=== PATIENT | male | born 1935 | race Caucasian/White ===

== ENCOUNTER 2021-12-23 12:11 | Emergency (ER) | payer MEDICARE ==
[2021-12-23] MEDS ORDERED: Doxycycline 100 MG Cap PO ONE (13:12)
== END 2021-12-23 14:33 | disposition home or self-care (01) ==
LOC: JP.ED 12:11
DX: T83.511A Infection and inflammatory reaction due to indwelling urethral catheter, initial encounter (principal); L03.311 Cellulitis of abdominal wall; E11.22 Type 2 diabetes mellitus with diabetic chronic kidney disease; N18.31 Chronic kidney disease, stage 3a; Z95.0 Presence of cardiac pacemaker; Z79.4 Long term (current) use of insulin; Z79.899 Other long term (current) drug therapy
CPT/HCPCS: 99283; A9270

== ENCOUNTER 2021-12-26 22:16 | Emergency (ER) | payer MEDICARE | END 2021-12-27 08:10 | disposition home or self-care (01) | LOC: JP.ED 22:16 | DX: T83.098A Other mechanical complication of other urinary catheter, initial encounter (principal); I11.0 Hypertensive heart disease with heart failure; I50.9 Heart failure, unspecified; J44.9 Chronic obstructive pulmonary disease, unspecified; E11.9 Type 2 diabetes mellitus without complications; Z79.01 Long term (current) use of anticoagulants; Z79.4 Long term (current) use of insulin; Z79.899 Other long term (current) drug therapy | CPT/HCPCS: 99283 ==

== ENCOUNTER 2023-01-10 15:05 | Emergency (ER) | payer MEDICARE ==
[2023-01-10 16:43] LABS: BASOPHILS ABSOLUTE AUTO 0.08 K/uL (0.00-0.10); BASOPHILS PERCENT AUTO 0.7 % (0.1-1.3); EOSINOPHILS ABSOLUTE AUTO 0.45 K/uL (0.00-0.40); EOSINOPHILS PERCENT AUTO 3.7 % (0.0-5.4); HEMATOCRIT 41.8 % (38.4-49.7); HEMOGLOBIN 13.3 g/dL (12.9-16.9); IMMATURE GRAN ABSOLUTE AUTO 0.08 K/uL (0.00-0.23); IMMATURE GRAN PERCENT AUTO 0.7 % (0.0-0.7); LYMPHOCYTES ABSOLUTE AUTO 1.28 K/uL (0.8-3.3); LYMPHOCYTES PERCENT AUTO 10.4 % (11.4-47.7); MEAN CORPUSCULAR HEMOGLOBIN 28.9 pg (31.6-35.5); MEAN CORPUSCULAR HGB CONC 31.8 g/dL (31.6-35.5); MEAN CORPUSCULAR VOLUME 90.7 fL (81.4-99.0); MONOCYTES ABSOLUTE AUTO 0.83 K/uL (0.20-0.90); MONOCYTES PERCENT AUTO 6.8 % (3.3-12.6); NEUTROPHILS ABSOLUTE AUTO 9.57 K/uL (1.0-7.6); NEUTROPHILS PERCENT AUTO 77.7 % (40.0-78.1); PLATELET COUNT,PLT 260 K/uL (130-375); RED BLOOD CELL COUNT 4.61 M/uL (4.14-5.76); WHITE BLOOD CELL COUNT,WBC 12.3 K/uL (3.2-11.0)
[2023-01-10 17:00] LABS: ANION GAP 6.8 mmol/L (5.0-14.0); CALCIUM 10.8 mg/dL (8.5-10.1); CREATININE 1.9 mg/dL (0.8-1.3); EST CRCL DRUG DOSING (CG) 26.58 mL/min; POTASSIUM,K 4.5 mmol/L (3.6-5.2)
== END 2023-01-10 19:23 | disposition home or self-care (01) ==
LOC: JP.ED 15:05
DX: L03.115 Cellulitis of right lower limb (principal); I11.0 Hypertensive heart disease with heart failure; I50.9 Heart failure, unspecified; E11.9 Type 2 diabetes mellitus without complications; J44.9 Chronic obstructive pulmonary disease, unspecified; Z79.01 Long term (current) use of anticoagulants; Z79.82 Long term (current) use of aspirin; Z79.84 Long term (current) use of oral hypoglycemic drugs; Z79.4 Long term (current) use of insulin; Z79.899 Other long term (current) drug therapy
CPT/HCPCS: 36415; 71045; 71045-26; 80048; 85025; 99284

== ENCOUNTER 2023-01-20 16:02 | Inpatient (IN) | payer MEDICARE ==
[2023-01-20 16:58] LABS: BASOPHILS ABSOLUTE AUTO 0.06 K/uL (0.00-0.10); BASOPHILS PERCENT AUTO 0.4 % (0.1-1.3); EOSINOPHILS ABSOLUTE AUTO 0.03 K/uL (0.00-0.40); EOSINOPHILS PERCENT AUTO 0.2 % (0.0-5.4); HEMATOCRIT 39.4 % (38.4-49.7); HEMOGLOBIN 12.6 g/dL (12.9-16.9); IMMATURE GRAN ABSOLUTE AUTO 0.09 K/uL (0.00-0.23); IMMATURE GRAN PERCENT AUTO 0.5 % (0.0-0.7); LYMPHOCYTES ABSOLUTE AUTO 1.28 K/uL (0.8-3.3); LYMPHOCYTES PERCENT AUTO 7.6 % (11.4-47.7); MEAN CORPUSCULAR HEMOGLOBIN 28.8 pg (31.6-35.5); MEAN CORPUSCULAR VOLUME 90.2 fL (81.4-99.0); MONOCYTES ABSOLUTE AUTO 0.95 K/uL (0.20-0.90); MONOCYTES PERCENT AUTO 5.6 % (3.3-12.6); NEUTROPHILS ABSOLUTE AUTO 14.53 K/uL (1.0-7.6); NEUTROPHILS PERCENT AUTO 85.7 % (40.0-78.1); PLATELET COUNT,PLT 211 K/uL (130-375); RED BLOOD CELL COUNT 4.37 M/uL (4.14-5.76); WHITE BLOOD CELL COUNT,WBC 16.9 K/uL (3.2-11.0)
[2023-01-20 17:17] LABS: INR 1.3; PROTHROMBIN TIME 12.8 sec (9.2-10.6)
[2023-01-20 17:42] LABS: A/G RATIO 0.7 (1.2-2.2); ALANINE AMINOTRANSFERASE,ALT 12 U/L (12-78); ALBUMIN 2.9 g/dL (3.4-5.0); ALKALINE PHOSPHATASE 100 U/L (46-116); ANION GAP 6.5 mmol/L (5.0-14.0); ASPARTATE AMNIOTRANSFERASE,AST 22 U/L (15-37); BILIRUBIN TOTAL 0.6 mg/dL (0.2-1.0); CARBON DIOXIDE,CO2 31 mmol/L (21-32); CHLORIDE,CL 104 mmol/L (100-108); EST CRCL DRUG DOSING (CG) 17.42 mL/min; ESTIMATED GFR 20 mL/min (>60); GLUCOSE RANDOM 72 mg/dL (74-106); POTASSIUM,K 4.9 mmol/L (3.6-5.2); PRO B-TYPE NATRIUR PEPT,BNPPRO 1219 pg/mL (5-450); PROTEIN TOTAL,TP 7.1 g/dL (6.4-8.2); SODIUM,NA 141 mmol/L (140-148)
[2023-01-20 17:44] LABS: BLOOD UREA NITROGEN,BUN 87 mg/dL (7-18)
[2023-01-20] MEDS ORDERED: Sodium Chloride 0.9% 1,000 ML IV SCH (17:45)
[2023-01-20 18:02] LABS: BILIRUBIN,URINE NEGATIVE (NEGATIVE); COLOR,URINE YELLOW (YELLOW); GLUCOSE,URINE NEGATIVE (NEGATIVE); KETONES,URINE NEGATIVE (NEGATIVE); LEUKOCYTE ESTERASE,URINE MODERATE (NEGATIVE); NITRITE,URINE POSITIVE (NEGATIVE); OCCULT BLOOD,URINE TRACE-INTACT (NEGATIVE); PH,URINE 6.5 (5.0-8.0); PROTEIN,URINE NEGATIVE (NEGATIVE); UROBILINOGEN,URINE 0.2 EU/dL (0.2-1.0)
[2023-01-20 18:08] LABS: AMORPHOUS SEDIMENT,URINE NOT SEEN; APPEARANCE,URINE CLOUDY (CLEAR); BACTERIA,URINE MODERATE; EPITHELIAL CELLS,URINE NOT SEEN; MUCUS,URINE NOT SEEN; RBC,URINE 0-5 (0-5); WBC,URINE 20-30 (0-5)
[2023-01-20] MEDS ORDERED: Levofloxacin/Dextrose 5%-Water 750 MG in Premix Bag 1 BAG IV ONE (18:14)
[2023-01-20 19:17] LABS: CORONAVIRUS COVID-19 NAA NEGATIVE (NEGATIVE); INFLUENZA A NAA NEGATIVE (NEGATIVE); INFLUENZA B NAA NEGATIVE (NEGATIVE); RESPIRATORY SYNCYTIAL VIR NAA NEGATIVE (NEGATIVE)
[2023-01-20] MEDS ORDERED: Haloperidol 5 MG Tab PO PRN (20:38)
[2023-01-20] MEDS ORDERED: Bisacodyl 5 MG Tab PO PRN (20:38)
[2023-01-20] MEDS ORDERED: oxyCODONE 5 MG Tab PO PRN (20:38)
[2023-01-20] MEDS ORDERED: Haloperidol Lactate 5 MG/ML SDV IVPUSH PRN (20:38)
[2023-01-20] MEDS ORDERED: Morphine 2 MG/ML SYRINGE IVPUSH PRN (20:38)
[2023-01-20] MEDS ORDERED: Glucagon,Human Recombinant 1 MG Vial IM PRN (20:38)
[2023-01-20] MEDS ORDERED: 50% Dextrose in Water 50 ML Syringe IVPUSH PRN (20:38)
[2023-01-20] MEDS ORDERED: Albuterol/Ipratropium 3.0-0.5 MG/3 ML Neb Soln NEB PRN (20:38)
[2023-01-20] MEDS ORDERED: Naloxone 0.4 MG/ML SDV IVPUSH PRN (20:38)
[2023-01-20] MEDS ORDERED: Albuterol 0.083% 2.5 MG/3 ML Neb Soln NEB PRN (20:38)
[2023-01-20] MEDS ORDERED: Acetaminophen 325 MG Tab PO PRN (20:38)
[2023-01-20] MEDS ORDERED: Docusate Sodium 100 MG Cap PO PRN (20:38)
[2023-01-20] MEDS: Insulin Lispro 100 Unit/ML 3 ML KwikPen SUBCUT SCH (20:57)
[2023-01-20] MEDS: Sodium Chloride 0.9% 1,000 ML IV SCH (20:58)
[2023-01-20] MEDS ORDERED: Insulin Glargine,Human Rec. Analog 100 Units/ML 3 ML Pen SUBCUT SCH (21:00)
[2023-01-20] MEDS ORDERED: Pantoprazole 40 MG Vial IV SCH (21:00)
[2023-01-20] MEDS ORDERED: Loratadine 10 MG Tab PO SCH (21:00)
[2023-01-20] MEDS ORDERED: Apixaban 5 MG Tab PO SCH (21:00)
[2023-01-20] MEDS: oxyCODONE 5 MG Tab PO SCH (22:38)
[2023-01-20] MEDS: cefTRIAXone 2 GM in Sodium Chloride 0.9% 50 ML IV SCH (22:41)
[2023-01-20] MEDS: Clotrimazole 1% Crm 30 GM Tube TOP SCH (22:41)
[2023-01-20] MEDS: Diclofenac Sodium 1% Gel 100 GM Tube TOP SCH (22:42)
[2023-01-21 05:30] LABS: BASOPHILS ABSOLUTE AUTO 0.06 K/uL (0.00-0.10); BASOPHILS PERCENT AUTO 0.5 % (0.1-1.3); EOSINOPHILS ABSOLUTE AUTO 0.16 K/uL (0.00-0.40); EOSINOPHILS PERCENT AUTO 1.4 % (0.0-5.4); HEMATOCRIT 36.3 % (38.4-49.7); HEMOGLOBIN 11.5 g/dL (12.9-16.9); IMMATURE GRAN ABSOLUTE AUTO 0.06 K/uL (0.00-0.23); IMMATURE GRAN PERCENT AUTO 0.5 % (0.0-0.7); LYMPHOCYTES ABSOLUTE AUTO 1.34 K/uL (0.8-3.3); LYMPHOCYTES PERCENT AUTO 11.4 % (11.4-47.7); MEAN CORPUSCULAR HEMOGLOBIN 28.9 pg (31.6-35.5); MEAN CORPUSCULAR HGB CONC 31.7 g/dL (31.6-35.5); MEAN CORPUSCULAR VOLUME 91.2 fL (81.4-99.0); MONOCYTES ABSOLUTE AUTO 0.81 K/uL (0.20-0.90); MONOCYTES PERCENT AUTO 6.9 % (3.3-12.6); NEUTROPHILS ABSOLUTE AUTO 9.33 K/uL (1.0-7.6); NEUTROPHILS PERCENT AUTO 79.3 % (40.0-78.1); PLATELET COUNT,PLT 186 K/uL (130-375); RED BLOOD CELL COUNT 3.98 M/uL (4.14-5.76); WHITE BLOOD CELL COUNT,WBC 11.8 K/uL (3.2-11.0)
[2023-01-21] MEDS: Sodium Chloride 0.9% 1,000 ML IV SCH ×3 (05:40→21:51)
[2023-01-21 05:47] LABS: CALCIUM 9.8 mg/dL (8.5-10.1); CREATININE 2.7 mg/dL (0.8-1.3); EST CRCL DRUG DOSING (CG) 19.35 mL/min; POTASSIUM,K 4.7 mmol/L (3.6-5.2)
[2023-01-21] MEDS: Diclofenac Sodium 1% Gel 100 GM Tube TOP SCH ×4 (06:16→21:45)
[2023-01-21] MEDS: Insulin Lispro 100 Unit/ML 3 ML KwikPen SUBCUT SCH ×4 (07:47→21:47)
[2023-01-21] MEDS: Formoterol/Mometasone 200-5 MCG 8.8 GM Inhaler IH SCH (08:23)
[2023-01-21] MEDS: Calcium Carbonate/Vitamin D3 1500 MG-400 Units Tab PO SCH (08:40)
[2023-01-21] MEDS: Apixaban 2.5 MG Tab PO SCH ×2 (08:40→21:42)
[2023-01-21] MEDS: Mineral Oil/Petrolatum Oint 100 GM OINT TOP SCH (08:42)
[2023-01-21] MEDS: Aspirin 81 MG Tab.EC PO SCH (08:42)
[2023-01-21] MEDS: atorvaSTATin 10 MG Tab PO SCH (08:43)
[2023-01-21] MEDS: Metoprolol Succinate 25 MG Tab.ER PO SCH (08:43)
[2023-01-21] MEDS: Sertraline 50 MG Tab PO SCH (08:46)
[2023-01-21] MEDS: oxyCODONE 5 MG Tab PO SCH ×2 (08:49→21:42)
[2023-01-21] MEDS: Ceres/Mineral Oil/Petrolatum/Wool Alcohol Cream 57 GM Tube TOP SCH ×2 (08:53→21:44)
[2023-01-21] MEDS: Clotrimazole 1% Crm 30 GM Tube TOP SCH ×2 (08:54→21:42)
[2023-01-21] MEDS ORDERED: Spironolactone 25 MG Tab PO SCH (09:00)
[2023-01-21] MEDS ORDERED: Bumetanide 1 MG Tab PO SCH (09:00)
[2023-01-21] MEDS ORDERED: Liraglutide (rDNA Origin) 0.6 MG/0.1 ML 3 ML Pen SUBCUT SCH (09:00)
[2023-01-21] MEDS: Insulin Glargine,Human Rec. Analog 100 Units/ML 3 ML Pen SUBCUT SCH ×2 (09:41→21:45)
[2023-01-21] MEDS: Triamcinolone Acetonide 0.1% Crm 15 GM Tube TOP SCH (09:42)
[2023-01-21] MEDS ORDERED: Pantoprazole 40 MG Tab.CR PO SCH (21:00)
[2023-01-21] MEDS: cefTRIAXone 2 GM in Sodium Chloride 0.9% 50 ML IV SCH (21:50)
[2023-01-22 05:51] LABS: HEMATOCRIT 34.1 % (38.4-49.7); HEMOGLOBIN 10.8 g/dL (12.9-16.9); MEAN CORPUSCULAR HGB CONC 31.7 g/dL (31.6-35.5); MEAN CORPUSCULAR VOLUME 91.4 fL (81.4-99.0); RED BLOOD CELL COUNT 3.73 M/uL (4.14-5.76); WHITE BLOOD CELL COUNT,WBC 9.2 K/uL (3.2-11.0)
[2023-01-22 06:07] LABS: CREATININE 2.1 mg/dL (0.8-1.3); EST CRCL DRUG DOSING (CG) 24.88 mL/min; POTASSIUM,K 4.9 mmol/L (3.6-5.2)
[2023-01-22 06:11] LABS: ANION GAP 7.9 mmol/L (5.0-14.0)
[2023-01-22] MEDS: Sodium Chloride 0.9% 1,000 ML IV SCH (06:11)
[2023-01-22] MEDS: Diclofenac Sodium 1% Gel 100 GM Tube TOP SCH ×3 (06:12→11:57)
[2023-01-22] MEDS: Formoterol/Mometasone 200-5 MCG 8.8 GM Inhaler IH SCH (08:05)
[2023-01-22] MEDS: Insulin Lispro 100 Unit/ML 3 ML KwikPen SUBCUT SCH ×2 (08:32→11:54)
[2023-01-22] MEDS: Calcium Carbonate/Vitamin D3 1500 MG-400 Units Tab PO SCH (08:44)
[2023-01-22] MEDS: Apixaban 2.5 MG Tab PO SCH (08:44)
[2023-01-22] MEDS: Ceres/Mineral Oil/Petrolatum/Wool Alcohol Cream 57 GM Tube TOP SCH (08:45)
[2023-01-22] MEDS: Mineral Oil/Petrolatum Oint 100 GM OINT TOP SCH (08:46)
[2023-01-22] MEDS: Aspirin 81 MG Tab.EC PO SCH (08:46)
[2023-01-22] MEDS: Insulin Glargine,Human Rec. Analog 100 Units/ML 3 ML Pen SUBCUT SCH (08:47)
[2023-01-22] MEDS: atorvaSTATin 10 MG Tab PO SCH (08:50)
[2023-01-22] MEDS: Clotrimazole 1% Crm 30 GM Tube TOP SCH (08:51)
[2023-01-22] MEDS: Triamcinolone Acetonide 0.1% Crm 15 GM Tube TOP SCH (08:52)
[2023-01-22] MEDS: Sertraline 50 MG Tab PO SCH (08:53)
[2023-01-22] MEDS: Metoprolol Succinate 25 MG Tab.ER PO SCH (08:54)
[2023-01-22] MEDS: oxyCODONE 5 MG Tab PO SCH (08:59)
[2023-01-22] MEDS ORDERED: Levofloxacin/Dextrose 5%-Water 750 MG in Premix Bag 1 BAG IV SCH (14:00)
== END 2023-01-22 12:31 | disposition home health service (06) | DRG 698 ==
LOC: JP.ED 16:02 → JP.ICU 18:59
PROVIDERS: ADMIT Internal Medicine; ATTEND Internal Medicine
DX: T83.510A Infection and inflammatory reaction due to cystostomy catheter, initial encounter (principal); A41.9 Sepsis, unspecified organism; R65.20 Severe sepsis without septic shock; L03.115 Cellulitis of right lower limb; N17.9 Acute kidney failure, unspecified; I11.0 Hypertensive heart disease with heart failure; I48.20 Chronic atrial fibrillation, unspecified; I42.9 Cardiomyopathy, unspecified; E11.9 Type 2 diabetes mellitus without complications; I13.0 Hypertensive heart and chronic kidney disease with heart failure and stage 1 through stage 4 chronic kidney disease, or unspecified chronic kidney disease; N39.0 Urinary tract infection, site not specified; F02.811 Dementia in other diseases classified elsewhere, unspecified severity, with agitation; Z20.822 Contact with and (suspected) exposure to COVID-19; G30.9 Alzheimer's disease, unspecified; Y84.6 Urinary catheterization as the cause of abnormal reaction of the patient, or of later complication, without mention of misadventure at the time of the procedure; Z66 Do not resuscitate; I50.9 Heart failure, unspecified; G89.29 Other chronic pain; M54.9 Dorsalgia, unspecified; N18.30 Chronic kidney disease, stage 3 unspecified; E11.22 Type 2 diabetes mellitus with diabetic chronic kidney disease; F41.9 Anxiety disorder, unspecified; B35.9 Dermatophytosis, unspecified; E86.0 Dehydration; J44.9 Chronic obstructive pulmonary disease, unspecified; I87.2 Venous insufficiency (chronic) (peripheral); Z93.59 Other cystostomy status; Z79.4 Long term (current) use of insulin; Z79.899 Other long term (current) drug therapy; Z79.01 Long term (current) use of anticoagulants; Z79.82 Long term (current) use of aspirin; Z79.84 Long term (current) use of oral hypoglycemic drugs; Z95.0 Presence of cardiac pacemaker
CPT/HCPCS: 0241U; 36415; 70450; 71045; 80048; 80053; 81001; 82947; 83605; 83880; 84145; 85025; 85027; 85610; 87040; 87086; 93005; 94640; 96360; 97161; 99223; 99233; 99238; 99285; 87088; 87186; A9270-GY; C9113; J0696; J1815; J1815-GY; J1956; J3490; J7030

== ENCOUNTER 2023-01-23 09:17 | Emergency (ER) | payer MEDICARE | END 2023-01-23 13:20 | LOC: JP.ED 09:17 | DX: I95.9 Hypotension, unspecified (principal); I73.00 Raynaud's syndrome without gangrene; I11.0 Hypertensive heart disease with heart failure; I50.9 Heart failure, unspecified; J44.9 Chronic obstructive pulmonary disease, unspecified; I48.91 Unspecified atrial fibrillation; E11.9 Type 2 diabetes mellitus without complications; Z95.0 Presence of cardiac pacemaker; Z79.01 Long term (current) use of anticoagulants; Z79.82 Long term (current) use of aspirin; Z79.899 Other long term (current) drug therapy; Z79.84 Long term (current) use of oral hypoglycemic drugs | CPT/HCPCS: 99285 ==

== ENCOUNTER 2023-03-09 15:42 | Emergency (ER) | payer MEDICARE | END 2023-03-09 16:30 | disposition left against medical advice (07) | LOC: JP.ED 15:42 | DX: Z53.21 Procedure and treatment not carried out due to patient leaving prior to being seen by health care provider (principal) ==

== ENCOUNTER 2023-07-31 11:04 | Emergency (ER) | payer MEDICARE | END 2023-07-31 13:09 | LOC: JP.ED 11:04 | DX: S80.01XA Contusion of right knee, initial encounter (principal); S70.01XA Contusion of right hip, initial encounter; I11.0 Hypertensive heart disease with heart failure; I50.9 Heart failure, unspecified; I48.91 Unspecified atrial fibrillation; J44.9 Chronic obstructive pulmonary disease, unspecified; E11.9 Type 2 diabetes mellitus without complications; Z79.01 Long term (current) use of anticoagulants; Z79.82 Long term (current) use of aspirin; Z79.84 Long term (current) use of oral hypoglycemic drugs; Z79.899 Other long term (current) drug therapy; Z79.4 Long term (current) use of insulin; Z87.891 Personal history of nicotine dependence; Z95.0 Presence of cardiac pacemaker; W07.XXXA Fall from chair, initial encounter; Y93.89 Activity, other specified | CPT/HCPCS: 72170; 73562-RT; 99285 ==

== ENCOUNTER 2023-08-26 09:31 | Emergency (ER) | payer MEDICARE ==
[2023-08-26] MEDS ORDERED: Piperacillin/Tazobactam 4.5 GM in Sodium Chloride 0.9% 100 ML IV ONE (11:48)
[2023-08-26] MEDS ORDERED: Bacitracin Oint 1 GM U/D Packet TOP ONE (12:21)
[2023-08-26 12:25] LABS: IMMATURE GRAN ABSOLUTE AUTO 0.09 K/uL (0.00-0.23)
[2023-08-26 12:39] LABS: LACTIC ACID 1.9 mmol/L (0.4-2.0)
[2023-08-26 12:41] LABS: POTASSIUM,K 5.2 mmol/L (3.6-5.2)
[2023-08-26 12:42] LABS: ANION GAP 6.2 mmol/L (5.0-14.0); CALCIUM 10.3 mg/dL (8.5-10.1); EST CRCL DRUG DOSING (CG) 25.65 mL/min
[2023-08-26 12:44] LABS: C-REACTIVE PROTEIN 4.77 mg/dL (<0.50)
[2023-08-26 13:21] LABS: HEMATOCRIT 37.2 % (38.4-49.7); MEAN CORPUSCULAR HEMOGLOBIN 28.4 pg (31.6-35.5); MEAN CORPUSCULAR VOLUME 87.9 fL (81.4-99.0); RED BLOOD CELL COUNT 4.23 M/uL (4.14-5.76); WHITE BLOOD CELL COUNT,WBC 12.6 K/uL (3.2-11.0)
[2023-08-26 13:22] LABS: EOSINOPHILS PERCENT AUTO 3.3 % (0.0-5.4); LYMPHOCYTES PERCENT AUTO 12.3 % (11.4-47.7); MEAN CORPUSCULAR HGB CONC 32.3 g/dL (31.6-35.5); NEUTROPHILS PERCENT AUTO 77.1 % (40.0-78.1); PLATELET COUNT,PLT 290 K/uL (130-375)
[2023-08-26 13:23] LABS: BASOPHILS PERCENT AUTO 0.6 % (0.1-1.3); IMMATURE GRAN PERCENT AUTO 0.7 % (0.0-0.7)
[2023-08-26 13:24] LABS: BASOPHILS ABSOLUTE AUTO 0.08 K/uL (0.00-0.10); EOSINOPHILS ABSOLUTE AUTO 0.41 K/uL (0.00-0.40); LYMPHOCYTES ABSOLUTE AUTO 1.55 K/uL (0.8-3.3); MONOCYTES ABSOLUTE AUTO 0.76 K/uL (0.20-0.90)
== END 2023-08-26 13:15 ==
LOC: JP.ED 09:31
DX: I96 Gangrene, not elsewhere classified (principal); I49.3 Ventricular premature depolarization; I11.0 Hypertensive heart disease with heart failure; I50.9 Heart failure, unspecified; J44.9 Chronic obstructive pulmonary disease, unspecified; E11.9 Type 2 diabetes mellitus without complications; Z79.82 Long term (current) use of aspirin; Z79.84 Long term (current) use of oral hypoglycemic drugs; Z79.899 Other long term (current) drug therapy
CPT/HCPCS: 36415; 80048; 83605; 85025; 86140; 87040; 87070; 87077; 87186; 87205; 99283

== ENCOUNTER 2023-09-30 03:55 | Emergency (ER) | payer MEDICARE ==
[2023-09-30 05:57] LABS: BASOPHILS ABSOLUTE AUTO 0.07 K/uL (0.00-0.10); BASOPHILS PERCENT AUTO 0.6 % (0.1-1.3); EOSINOPHILS PERCENT AUTO 4.6 % (0.0-5.4); HEMATOCRIT 33.6 % (38.4-49.7); HEMOGLOBIN 10.7 g/dL (12.9-16.9); IMMATURE GRAN ABSOLUTE AUTO 0.11 K/uL (0.00-0.23); LYMPHOCYTES ABSOLUTE AUTO 1.54 K/uL (0.8-3.3); LYMPHOCYTES PERCENT AUTO 14.2 % (11.4-47.7); MEAN CORPUSCULAR HGB CONC 31.8 g/dL (31.6-35.5); MONOCYTES ABSOLUTE AUTO 0.98 K/uL (0.20-0.90); MONOCYTES PERCENT AUTO 9.1 % (3.3-12.6); NEUTROPHILS ABSOLUTE AUTO 7.62 K/uL (1.0-7.6); NEUTROPHILS PERCENT AUTO 70.5 % (40.0-78.1); PLATELET COUNT,PLT 260 K/uL (130-375); RED BLOOD CELL COUNT 3.82 M/uL (4.14-5.76); WHITE BLOOD CELL COUNT,WBC 10.8 K/uL (3.2-11.0)
[2023-09-30 06:07] LABS: CALCIUM 9.9 mg/dL (8.5-10.1); CREATININE 2.3 mg/dL (0.8-1.3); EST CRCL DRUG DOSING (CG) 21.55 mL/min; POTASSIUM,K 4.1 mmol/L (3.6-5.2)
[2023-09-30 06:12] LABS: ANION GAP 11.1 mmol/L (5.0-14.0)
[2023-09-30] MEDS: Sodium Chloride 0.9% 1,000 ML IV SCH (07:45)
[2023-09-30] MEDS: Ampicillin/Sulbactam Na 1.5 GM in Sodium Chloride 0.9% 50 ML IV ONE (08:29)
[2023-09-30] MEDS: Acetaminophen 500 MG Tab PO ONE (10:53)
== END 2023-09-30 11:20 | disposition other institution (70) ==
LOC: JP.ED 03:55
DX: I96 Gangrene, not elsewhere classified (principal); I11.0 Hypertensive heart disease with heart failure; I50.9 Heart failure, unspecified; I25.10 Atherosclerotic heart disease of native coronary artery without angina pectoris; J44.9 Chronic obstructive pulmonary disease, unspecified; E11.9 Type 2 diabetes mellitus without complications; Z79.899 Other long term (current) drug therapy; Z79.891 Long term (current) use of opiate analgesic
CPT/HCPCS: 36415; 80048; 83605; 85025; 96365; 99285; A9270; J0295; J3490; J7030

== ENCOUNTER 2024-10-02 19:17 | Emergency (ER) | payer MEDICARE ==
[2024-10-02 20:29] LABS: BASOPHILS ABSOLUTE AUTO 0.06 K/uL (0.00-0.10); BASOPHILS PERCENT AUTO 0.2 % (0.1-1.3); EOSINOPHILS PERCENT AUTO 0.0 % (0.0-5.4); IMMATURE GRAN ABSOLUTE AUTO 0.23 K/uL (0.00-0.23); IMMATURE GRAN PERCENT AUTO 1.0 % (0.0-0.7); LYMPHOCYTES ABSOLUTE AUTO 1.26 K/uL (0.8-3.3); LYMPHOCYTES PERCENT AUTO 5.2 % (11.4-47.7); MONOCYTES ABSOLUTE AUTO 0.95 K/uL (0.20-0.90); MONOCYTES PERCENT AUTO 3.9 % (3.3-12.6); NEUTROPHILS ABSOLUTE AUTO 21.69 K/uL (1.0-7.6); NEUTROPHILS PERCENT AUTO 89.7 % (40.0-78.1); PLATELET COUNT,PLT 240 K/uL (130-375); RED BLOOD CELL COUNT 4.67 M/uL (4.14-5.76); WHITE BLOOD CELL COUNT,WBC 24.2 K/uL (3.2-11.0)
[2024-10-02 20:39] LABS: EOSINOPHILS ABSOLUTE AUTO 0.01 K/uL (0.00-0.40)
[2024-10-02 20:52] LABS: A/G RATIO 0.7 (1.2-2.2); ALANINE AMINOTRANSFERASE,ALT 25 U/L (12-78); ASPARTATE AMNIOTRANSFERASE,AST 17 U/L (15-37); BILIRUBIN TOTAL 0.6 mg/dL (0.2-1.0); BLOOD UREA NITROGEN,BUN 51 mg/dL (7-18); CARBON DIOXIDE,CO2 34 mmol/L (21-32); CHLORIDE,CL 101 mmol/L (100-108); CREATININE 1.9 mg/dL (0.8-1.3); ESTIMATED GFR 34 mL/min (>60); GLUCOSE RANDOM 97 mg/dL (74-106); POTASSIUM,K 4.7 mmol/L (3.6-5.2); PROTEIN TOTAL,TP 8.3 g/dL (6.4-8.2); SODIUM,NA 141 mmol/L (140-148)
[2024-10-02 21:08] LABS: LACTIC ACID 1.7 mmol/L (0.4-2.0)
[2024-10-02] MEDS: Acetaminophen 1,000 MG in Premix Bag 1 BAG IV ONE (22:27)
[2024-10-02] MEDS: metroNIDAZOLE/Normal Saline 500 MG in Premix Bag 1 BAG IV ONE (22:58)
[2024-10-03 00:16] LABS: APPEARANCE,URINE CLOUDY (CLEAR); GLUCOSE,URINE NEGATIVE (NEGATIVE); OCCULT BLOOD,URINE LARGE (NEGATIVE)
[2024-10-03 00:21] LABS: SQUAMOUS EPITHELIAL CELLS,UR FEW /HPF; UROTHELIAL CELLS,URINE NOT SEEN /HPF
[2024-10-03] MEDS: Norepinephrine Bit/D5W Premix 4 MG in Premix Bag 1 BAG IV SCH (01:09)
[2024-10-03] MEDS ORDERED: Naloxone 0.4 MG/ML SDV IVPUSH PRN (01:52)
[2024-10-03] MEDS: Norepinephrine Bit/D5W Premix 250 ML ONE (02:00)
== END 2024-10-03 13:11 | disposition home or self-care (01) ==
LOC: JP.ED 19:17
DX: A41.9 Sepsis, unspecified organism (principal); I11.0 Hypertensive heart disease with heart failure; I50.9 Heart failure, unspecified; E11.9 Type 2 diabetes mellitus without complications; Z79.82 Long term (current) use of aspirin; Z79.899 Other long term (current) drug therapy; Z79.4 Long term (current) use of insulin
CPT/HCPCS: 36415; 71045; 80053; 80202; 81001; 83605; 83690; 85025; 86140; 87040; 87077; 87086; 87088; 87186; 96365; 96367; 96368; 96375; 96376; 99285; A9270; J0131; J0696; J1630; J1836; J2270; J3373; J7030; J7040; J7050